=== PATIENT | female | born 1965 | race Caucasian/White ===

== ENCOUNTER → 2019-01-22 16:05 | Outpatient (CLI) | payer OTHER, SELFPAY ==
--- NOTE | 2019-01-22 16:12 | US_ITS ---
HISTORY: PROTEINURIA EXAMINATION: US Kidney(s) complete (eg, kidneys and bladder) TECHNIQUE: Douglas scale and color doppler images were obtained of the kidneys. 113 images. COMPARISON: None FINDINGS: RIGHT KIDNEY: Measures 1.4 x 6 x 4.8 cm. The cortex is 18 mm thick.. There is no hydronephrosis. No shadowing calculus, focal lesion or perinephric collection is demonstrated. LEFT KIDNEY: Measures 1.3 x 4.9 x 5 cm. The cortex is 19 mm thick.. There is no hydronephrosis. No renal calculi are perceived. 2 anechoic structures are present within the right kidney. One measures 7 x 7 x 5 mm. The other measures 9 x 9 x 7 mm. These are consistent with benign simple cysts. URINARY BLADDER: Measures about 200 cc on the prevoid volume, and is empty and about 4 cc on the postvoid volume. Bilateral ureteral jets were demonstrated. US/Kidney and Bladder IMPRESSION: Negative renal ultrasound. at 0456 Reported and signed by: Liban Hill MD Electronically Signed: Liban Hill MD at 4:55 EST Tel , Service support ,
== END ==
PROVIDERS: Family Provider Family Medicine; PCP Family Medicine; Referring Provider Family Medicine; Visit Provider Family Medicine
DX: R80.9 Proteinuria, unspecified (principal)
CPT/HCPCS: 76770

== ENCOUNTER 2019-08-12 09:28 | Emergency (ER) | payer OTHER, SELFPAY ==
[2019-08-12 09:30] VITALS: BP 154/96; PULSE 96; RESP 16; TEMP 36.3; O2SAT 96; BMI 29.0
--- NOTE | 2019-08-12 09:49 | CT_ITS ---
STUDY: CT ABDOMEN AND PELVIS WITH CONTRAST REASON FOR EXAM: Female, 54 years old. TAA,PATIENT STATES SHE HAS RECENTLY BEEN TREATED FOR AN ABSCESS AND A UTI. STATES SYMPTOMS RESOLVED FOR APPROXIMATELY 10 DAYS. NOW COMPLAINS OF BACK PAIN. CONCERNS FOR LYME DISEASE, WAS STARTED ON DOXYCYCLINE ON 08/09. RADIATION DOSAGE (If Supplied By Facility): CTDIvol = ( 19.08 ) mGy, DLP = ( 1460.70 ) mGycm TECHNIQUE: Transaxial images were obtained from the dome of the diaphragm to the symphysis pubis without oral contrast. IV 100mL Isovue-370 was administered. Sagittal and coronal images were reconstructed. Individualized dose optimization techniques were used for this CT. COMPARISON: None. FINDINGS: Mild increased markings at the left lung base suggestive of atelectasis and/or scarring. The visualized portions of the heart are within normal limits. There is decreased attenuation of the liver consistent with steatosis. Normal gallbladder and extrahepatic biliary system. Normal spleen. Normal pancreas. Normal bilateral adrenal glands. Normal right kidney. Normal left kidney. Normal visualized stomach. Normal small intestine. Normal colon. The appendix is visualized and appears normal. There is scattered atherosclerotic calcification of the abdominal aorta, without a demonstrated aneurysm. Normal inferior vena cava. Normal retroperitoneum. Normal urinary bladder. Normal abdominal wall. Normal osseous structures. CT/Abdomen/Pelvis W IV Cont ONLY IMPRESSION: Fatty infiltration of the liver. No acute abnormality is seen. Electronically Signed: Ralph Luciano, at 11:09 EDT , Service support ,
--- NOTE | 2019-08-12 09:49 | EKG12_ITS ---
Test Reason : BACK Blood Pressure : / mmHG Vent. Rate : 092 BPM Atrial Rate : 092 BPM P-R Int : 154 ms QRS Dur : 070 ms QT Int : 342 ms P-R-T Axes : 015 017 023 degrees QTc Int : 422 ms Normal sinus rhythm Normal ECG Confirmed by JUDY BARBER, AUDREY ([id number]), editorial director ROSA DAMIAN ([id number]) on 08/14/2019 10:17:09 AM Referred By: DOMINIC Confirmed By:AUDREY KIM MD
--- NOTE | 2019-08-12 09:50 | ED.DCSUM_ITS ---
- ER Visit Summary Date of Service: 08/12/19 Chief Complaint: Back pain History of Present Illness: The patient is a [address] Emerson leger. She reports that she has mid back pain that began 3 days ago. Came on suddenly. Is a continuous sharp, aching pain. Is 10-10 at worst and 4-10 currently. Is worsened by nothing including movement. Is also relieved by nothing. She is taking Aleve without relief. States that she cannot find a comfortable position. She denies any radiation of the pain to her legs. No numbness, tingling, or weakness in her legs. No problems with her bowels or her bladder. She denies any recent trauma. No fall, MVA, or change in activity. Patient reports that last month she had an abscess to her left hip that she was placed on an antibiotic for for 10 days and it is completely resolved. On July 29 she saw her primary care physician and was diagnosed with a urinary tract infection was placed on Cipro for 5 days. States that that resolved as well. At that time she had back pain, but this is different. She had a negative COVID test then as well. Patient reports that she spoke with a family member who is a nurse practitioner and they were concerned about the possibility of Lyme disease and started her on doxycycline which she began 2 days ago. She reports that they do have a lot of ticks at their house. She taken 10 ticks off of her self over the last 6 to 8 weeks. However, she reports that none of these tics seem to have latched on. Patient denies any chest pain. However, she reports when the back pain is severe it seems to radiate into her chest. She denies any shortness of breath. No fever, chills, or cough. No ankle swelling or calf pain. No personal or family history of DVT. No recent travel. There is also no family history of kidney stones. Physical Examination: Vitals: Stable. Afebrile. General: Well-nourished and well-developed. Head: Normocephalic atraumatic. Neck: Supple, no lymphadenopathy. No JVD. Nontender. Cardiovascular: Regular rate and rhythm. No murmurs. Respiratory: No respiratory distress. Clear to auscultation bilaterally. Abdominal: Soft, nontender, nondistended, normal bowel sounds. No guarding, rebound, or peritoneal signs. Back: Nontender. No CVA tenderness. No pain with range of motion. Extremities: Nontender, no edema. Skin: Normal color, no rash. Neurologic: Alert and oriented ?3. Cranial nerves II through XII are intact. Normal strength and sensation. Psych: Normal affect. Test Results: EKG is sinus at [address] changes. Troponin is negative. D-dimer is 0.44. UA shows 25 to 50 white blood cells, but no bacteria. Chem-7 shows a sodium 133, chloride 96, glucose 124. CBC shows platelets of 561. Clinical Impression(s) from Imaging Studies Abdomen/Pelvis CT 08/12/19 09:49 IMPRESSION: Fatty infiltration of the liver. No acute abnormality is seen. Electronically Signed: Ralph Luciano, at 11:09 EDT , Service support , Chest CTA 08/12/19 10:46 IMPRESSION: Normal CTA chest examination, without a demonstrated pulmonary embolism or arterial dissection. Electronically Signed: Ralph Luciano, at 11:10 EDT , Service support , Emergency Department Course and Treatment: Patient had an IV placed. She is given a liter normal saline. She was given morphine and Zofran IV. She is resting more comfortably. Treatment Plan: Patient's urine was sent for culture. And had a prolonged scratch that there that at this time I do not have an explanation for her pain. She will be discharged with naproxen, Clark, and Zofran. Instructed to follow- up with her primary care physician in 3 to 5 days if not improving. Return to the emergency department for any worsening symptoms. Disposition: To home in improved and stable condition. Impression: 1. Back pain, uncertain cause. This note was generated with [employer] software. It may contain incorrect words, spelling, and punctuation that were not noted in review of the chart prior to signing ED Disposition - Plan for ED Patient: Disposition: Home or Assisted Living Instructions: ED Back Pain Acute or Chronic Prescriptions: Naproxen [Naprosyn] 500 mg PO BID #14 tab Prescription Printed Hydrocodone Bitart/Apap 5-325 [Clark 5MG-325MG] 1 tab PO Q4H PRN PRN 2 Days #10 tab PRN Reason: Pain Prescription Printed Ondansetron [Zofran Odt] 4 mg PO Q8H PRN PRN #10 tab PRN Reason: Nausea Prescription Printed Referrals: Lemuel Carvajal MD [Primary Care Provider] - 3-5 Days
[2019-08-12] MEDS: 0.9% Normal Saline 1,000 ML 1000 ML IV (09:59)
[2019-08-12 10:05] LABS: Bacteria 0 SEEN /hpf (None Seen); Mucous, Urine 0 SEEN /hpf (<or=2+)
[2019-08-12] MEDS: Ondansetron 4 MG/2 ML Vial IV (10:05)
[2019-08-12] MEDS: Morphine 4 MG/ML Syringe IV (10:05)
[2019-08-12 10:08] VITALS: BP 161/99; PULSE 90; RESP 17; O2SAT 94
[2019-08-12 10:10] LABS: Absolute Lymphocyte Count 2.75 X10^3/uL (0.83-4.51); Absolute Neutrophil Count 6.3 X10^3/uL (2.0-7.7); Basophil# 0.08 X10^3/uL; Basophil% 0.8 % (0-1); Eosinophil# 0.16 X10^3/uL; Eosinophils% 1.6 % (0-5); Hematocrit 45.3 % (37-47); Lymphocyte # 2.75 X10^3/ul (4.0); Lymphocyte % 27.6 % (19-41); Mean Corp Hgb Conc 33.1 g/dL (32-36); Mean Corpuscular Hgb 29.6 pg (27.0-32.0); Mean Corpuscular Volume 89.5 fL (81-99); Mean Platelet Vol. 8.3 fl (6.2-12.0); Monocyte# 0.58 X10^3/uL; Monocyte% 5.8 % (0-10); NRBC Flagged by Analyzer 0 % (0-5); Neutrophil # 6.33 X10^3/uL (2.7-7.7); Neutrophil % 63.7 % (47-70); Platelet Count 561 K/mm3 (150-450); RBC Distribution Width CV 13.5 % (11.6-14.6); RBC Distribution Width SD 43.5 fl (35.1-43.9); Red Blood Count 5.06 M/mm3 (4.2-5.4)
[2019-08-12 10:14] LABS: Color, Urine Yellow (Yellow); Glucose, Dipstick Normal (Normal); Ketone-Dipstick Negative (Negative); Leukocyte Esterase-Dipstick 500 /ul (Negative); Nitrite-Dipstick Negative (Negative); Occult Blood-Urine 25 /ul (Negative); Protein-Dipstick 100 mg/dl (Negative); Urine Bilirubin Dipstick Negative (Negative); Urine Clarity Sl. Cloudy (Clear); Urine Urobilinogen Normal (Normal)
[2019-08-12 10:20] LABS: Red Blood Cells-Urine 0-5 SEEN /hpf (0-5); Squamous Epithelial Cells - UA 0-5 SEEN /hpf (5-10); White Blood Cells 25-50 SEEN /hpf (0-5)
[2019-08-12 10:25] LABS: D-Dimer Quantitative (DVT/PE) 0.44 FEU/ug/m (0.27-0.49)
[2019-08-12 10:27] LABS: ALB/GLOB Ratio 0.9 RATIO (0.9-2.4); AST(SGOT) 26 U/L (15-37); Alanine Aminotransfer ALT/SGPT 62 U/L (13-56); Albumin, Serum 4.2 g/dL (3.2-5.0); Alkaline Phosphatase 145 U/L (45-117); Anion Gap 7 (5-15); BUN 16 mg/dL (7-18); Calcium,Total 9.7 mg/dL (8.5-10.1); Chloride 96 mmol/L (98-107); Creatinine, Serum 0.89 mg/dL (0.55-1.02); EST Glomerular Filtration Rate 70 mL/min (>60); Est Glom Filt Rate - Afr Amer 84 mL/min (>60); Estimated Creatinine Clearance 66.07 ml/min; Globulin 4.5 g/dL (2.2-4.2); Glucose 124 mg/dL (74-106); Protein, Total 8.7 g/dL (6.4-8.2); Sodium Level 133 mmol/L (136-145)
--- NOTE | 2019-08-12 10:46 | CT_ITS ---
STUDY: CTA CHEST REASON FOR EXAM: Female, 54 years old. TAA,PATIENT STATES SHE HAS RECENTLY BEEN TREATED FOR AN ABSCESS AND A UTI. STATES SYMPTOMS RESOLVED FOR APPROXIMATELY 10 DAYS. NOW COMPLAINS OF BACK PAIN. CONCERNS FOR LYME DISEASE, WAS STARTED ON DOXYCYCLINE ON 08/09. RADIATION DOSAGE (If Supplied By Facility): CTDIvol = ( 19.08 ) mGy, DLP = ( 1460.70 ) mGycm TECHNIQUE: The examination was performed with the intravenous administration of IV 100mL Isovue-370. Post-processing of the angiographic images was performed, with multiplanar reformation and 3D reconstruction. Individualized dose optimization techniques were used for this CT. COMPARISON: None. FINDINGS: Small benign-appearing bilateral axillary lymph nodes. Normal enhancement of the main pulmonary artery and right and left pulmonary arteries. Normal enhancement of the bilateral peripheral pulmonary arteries. There is no demonstrated pulmonary embolism. Normal thoracic aorta and visualized great vessels. There is no demonstrated aortic dissection. Normal heart and pericardium. Normal mediastinum. Normal hilar regions. Normal visualized trachea and bronchi. The lungs are well expanded. Minimal increased linear markings at the left lung base suggestive of underlying atelectasis and/or scarring. Normal pleura. Normal chest wall structures. Normal osseous structures. Fatty infiltration of the liver. CT/CTA Chest W/WO Contrast IMPRESSION: Normal CTA chest examination, without a demonstrated pulmonary embolism or arterial dissection. Electronically Signed: Ralph Luciano, at 11:10 EDT , Service support ,
[2019-08-12 12:35] VITALS: BP 144/88; PULSE 80; RESP 16; O2SAT 96; O2SAT 98
== END 2019-08-12 12:36 | disposition home or self-care (01) ==
LOC: ED 10:27
PROVIDERS: Emergency Provider Emergency Medicine; PCP Family Medicine
DX: M54.6 Pain in thoracic spine (principal); K76.0 Fatty (change of) liver, not elsewhere classified; I10 Essential (primary) hypertension; Z79.899 Other long term (current) drug therapy
CPT/HCPCS: 71275; 74177; 80053; 81001; 84484; 85025; 85379; 87077; 87086; 87088; 87186; 93005; 96361; 96374; 96375; 99284; J7030; Q9967; A4216; J2405

== ENCOUNTER 2024-03-27 14:20 | Outpatient (RCR) | payer OTHER, SELFPAY | END 2024-04-05 23:59 | LOC: NS 14:20 | PROVIDERS: PCP Family Medicine; Referring Provider Family Medicine; Visit Provider Family Medicine | DX: E11.9 Type 2 diabetes mellitus without complications (principal) | CPT/HCPCS: 97803 ==

== ENCOUNTER 2024-04-24 14:27 | Outpatient (RCR) | payer OTHER, SELFPAY | END 2024-05-06 23:59 | LOC: NS 14:27 | PROVIDERS: PCP Family Medicine; Referring Provider Family Medicine; Visit Provider Family Medicine | DX: Z71.3 Dietary counseling and surveillance (principal); E11.9 Type 2 diabetes mellitus without complications | CPT/HCPCS: 97803 ==

== ENCOUNTER 2024-06-03 14:09 | Outpatient (RCR) | payer OTHER, SELFPAY | END 2024-06-05 23:59 | LOC: NS 14:09 | PROVIDERS: PCP Family Medicine; Referring Provider Family Medicine; Visit Provider Family Medicine | DX: Z71.3 Dietary counseling and surveillance (principal); E11.9 Type 2 diabetes mellitus without complications | CPT/HCPCS: 97803 ==

== ENCOUNTER 2024-07-10 08:27 | Outpatient (RCR) | payer OTHER, SELFPAY | END 2024-08-05 23:59 | LOC: NS 08:27 | PROVIDERS: PCP Family Medicine; Referring Provider Family Medicine; Visit Provider Family Medicine | DX: Z71.3 Dietary counseling and surveillance (principal); E11.9 Type 2 diabetes mellitus without complications | CPT/HCPCS: 97803 ==

== ENCOUNTER → 2024-07-29 | Outpatient (CLI) | payer OTHER, SELFPAY ==
[2024-07-29 11:00] LABS: Microalbumin,Random Urine 13.8 mg/L (NO RANGE EST.)
--- OUTSIDE RECORDS SUMMARY | 2024-07-29 11:02 | XMS RPT_ITS | CCD ---
Author Organization [facility] Care Team Providers Care Carbide Die Maker Name Role Phone Andrey Vega Unavailable Unavailable Andrey Vega Unavailable Unavailable Gomez Pettit Unavailable Unavailable Stephan Tran Unavailable Unavailable Gomez Pettit Unavailable Unavailable Gomez Pettit Unavailable Unavailable Stephan Tran Unavailable Unavailable Chris BARBER, Dr. Del Castillo Primary Care Provider Dr. Magdalene Perez MD Attending Provider [phone] Magdalene Perez MD Referring Provider [phone] Magdalene Perez Primary Care Unavailable Magdalene Perez Referring Unavailable Magdalene Perez Attending Unavailable Magdalene Perez Primary Care Unavailable Magdalene Perez Referring Unavailable Magdalene Perez Attending Unavailable Magdalene Perez Primary Care Unavailable Magdalene Perez Referring Unavailable Magdalene Perez Attending Unavailable Magdalene Perez Referring Unavailable Magdalene Perez Attending Unavailable Magdalene Perez Primary Care Unavailable Magdalene Perez Referring Unavailable Magdalene Perez Attending Unavailable Magdalene Perez Primary Care Unavailable Allergies Allergy Classification Reported Allergen(s) Allergy Type Date of Onset Reaction(s) Facility (1 source) Penicillin; Translations: [penicillin] [facility] Penicillins Allergy to substance 1 PT UNSURE OF REACTION [facility] (1 source) Penicillins Drug allergy (disorder) 1 [facility] Repository Medications Current Medications Medication Drug Class(es) Dates Sig (Normalized) Sig (Original) azithromycin 250 mg oral tablet (1 source) Macrolide Antimicrobial Start: 04-01-19 Azithromycin 250 mg tablet Active 250 mg PO daily April 01, 2020 1:00am 2 tablets today, then 1 tablet daily on days 2 through 5 hydroCHLOROthiazide 25 mg oral tablet (2 sources) Thiazide Diuretic Start: 04-01-19 Hydrochlorothiazide 25 mg tablet Active 25 mg PO April 01, 2020 1:00am Start: 08-12-2019 End: 04-01-2020 Hydrochlorothiazide 1 TAB Di scontinued 1 {tbl} PO DAILY August 12, 2019 12:00am April 01, 2020 2:50pm Multivitamin tablet (1 source) Start: 04-01-2020 Multivitamin t ablet Active 1 {tbl} PO DAILY April 01, 2020 1:00am rosuvastatin calcium 10 mg oral tablet (1 source) HMG-CoA Reductase Inhibitor Start: 08-12-2019 take 1 tablet by mouth once daily Rosuvastatin 10 MG tablet Active 10 mg PO DAILY August 12, 2019 12:00am Completed/Discontinued Medications Medication Drug Class(es) Dates Sig (Normalized) Sig (Original) acetaminophen 325 mg / HYDROcodone bitartrate 5 mg oral tablet (1 source) Opioid Agonist Start: 08-12-2019 End: 08-14-2019 Hydrocodone-Acetam inophen 1 TABLET tablet Discontinued 1 {tbl} PO EVERY 4 HOURS NEEDED as needed for Pain 10 2 August 12, 2019 August 13, 2019 12:00am August 14, 2019 12:02am Doxycycline (1 source) Tetracycline-class Drug Start: 08-12-2019 End: 04-01-2020 Doxycycline 1 TAB Discontinued 1 {tbl} PO DAILY August 12, 2019 12:00am April 01, 2020 2:50pm naproxen 500 mg oral tablet (1 source) Nonsteroidal Anti-inflammatory Drug Start: 08-12-2019 End: 04-01-2020 take 1 tablet by mouth twice daily Naproxen 500 MG tablet Discontinued 500 mg PO TWICE A DAY 14 August 12, 2019 12:00am April 01, 2020 2:50pm ondansetron 4 mg disintegrating oral tablet (1 source) Serotonin-3 Receptor Antagonist Start: 08-12-2019 End: 04-01-2020 take 1 tablet by mouth every eight hours as needed for nausea Ondansetron 4 MG tablet Discontinued 4 mg PO EVERY 8 HOURS NEEDED as needed for Nausea August 12, 2019 12:00am April 01, 2020 2:50pm Problems Problem Classification Problem Date Documented Da te Episodic/Chronic Diabetes mellitus without complication (2 sources) Type 2 diabetes mellitus without complications; Translations: [Type 2 diabetes mellitus without complications] Onset: 06-06-2024 Chronic Fracture of upper limb (1 source) Open fracture of middle phalanx of index finger of right hand; Translations: [Displaced fracture of middle phalanx of right index finger, initial encounter for open fracture] 04-10-2020 Episodic Open wounds of extremities (1 source) Laceration of right index finger; Translations: [Laceration without foreign body of right index finger without damage to nail, initial encounter] 04-10-2020 Episodic Results Test Name Value Interpretation Reference Range Facil ity HIP, UNILATERAL W/PELVIS WHE N PERFORMED 2-3 VIEWSon 10-04-2019 HIP, UNILATERAL W/PELVIS WHEN PERFORMED 2-3 VIEWS Patient Name: YOVANI SANON STUDY: HIP, UNILATERAL W/PELVIS WHEN PERFORMED 2-3 VIEWS; 10/04/2019 1:43 pm INDICATION: M25.551 right hip pain. COMPARISON: None. ACCESSION NUMBER(S): [id number] ORDERING CLINICIAN: GOMEZ PETTIT FINDINGS: Pelvis and right hip, three views There is mild osteophytosis in the right hip joint. There is no joint space narrowing. There is no fracture or osteonecrosis IMPRESSION: Mild right hip degenerative changes. Electronically signed by: FRANCIE BRIGGS MD [facility] CT CARDIAC SCORINGon 01-07 CT CARDIAC SCORING Patient Name: YOVANI SANON STUDY: CT CARDIAC SCORING; 01/28/2019 9:00 am INDICATION: SCREENING FOR HEART DISEASE. COMPARISON: None. ACCESSION NUMBER(S): [id number] ORDERING CLINICIAN: GOMEZ PETTIT TECHNIQUE: Using prospective ECG gating, CT scan of the coronary arteries was performed without intravenous contrast. Coronary calcium scoring was performed according to the method of Agatston. FINDINGS: The score and distribution of calcium in the coronary arteries is as follows: LM 0, LAD 97,40 mm2 LCx 1,1 mm2 RCA 1,1 mm2 Total 99 The visualized mid/lower ascending thoracic aorta measures 3.5 cm in diameter. The visualized descending thoracic aorta is within normal limits for course and caliber. The heart is within normal limits for size. No pericardial effusion is present. No gross mediastinal lymphadenopathy is identified. There is no focal infiltrate, pleural effusion or pneumothorax identified. No discrete pulmonary nodules or masses are seen within the visualized lungs. IMPRESSION: 1. Coronary artery calcium score of 99, which places the patient in the low risk category, as below. Coronary artery calcium scoring may be helpful in predicting the risk for future coronary heart disease events. According to the [employer] [employer] Clinical Expert Consensus Task Force, such testing provides important prognostic information in patients with more than one coronary heart disease risk factor. The coronary artery calcium score correlates with the annual risk of a non-fatal myocardial infarction or coronary heart disease . Coronary artery score Annual Risk 0-99 0.4% 100-399 1.3% >400 2.4% These three breakpoints correspond to lower, intermediate and high risk states for future coronary events. Such information should be used, along with appropriate clinical judgment, to make decisions regarding the intensity of risk factor management strategies to treat blood lipids and to modify other non-lipid coronary risk factors. Reference: [place] P et al. Circulation. 2007; 115:402-426 Electronically signed by: MECHE HALL MD [facility] Vital Signs Date Time Vital Sign Value Performing Clinician Jossie escobedo 04-24-2024 14:30-0400 Body height 167.[address] Magdalene Perez MD Work Phone: [facility] 04-24-2024 14:30-0400 Body weight 84.[address] Magdalene Perez MD Work Phone: [facility] 03-27-2024 14:30-0500 Body weight 84.[address] Magdalene Perez MD Work Phone: [facility] 03-06-2024 14:54-0500 Body weight 85.[address] Magdalene Perez MD Work Phone: [facility] Encounters Encounter Date Encounter Type Care Provider Facility Start: 2024 ambulatory Magdalene Perez Facility: [facility] Start: 06-03-2024 End: 06-05-2024 ambulatory [facility] Facility:[facility] Start: 04-24-2024 End: 05-06-[address] Magdalene Perez MD -Nutritional Servi kael Work Phone: Start: 04-24-2024 End: 05-06-[address] Magdalene Perez MD Work Phone: [facility] Work Phone: Start: 03-27-2024 End: 04-05-[address] Magdalene Perez MD -Nutritional Servi kael Work Phone: Start: 03-27-2024 End: 04-05-2024 ambulatory [facility] Facility:[facility] Start: 03-06-2024 End: 03-08-[address] Magdalene Perez MD -Nutritional Servi kael Work Phone: Start: 03-06-2024 End: 03-08-2024 ambulatory [facility] Facility:[facility] Start: 02-13-2018 End: 02-13-2018 Patient encounter procedure Stephan Tran Facility:[facility] Start: 02-13-2018 Patient encounter procedure Facility:[id number] Start: 04-04-2017 End: 04-04-2017 Patient encounter procedure Andrey Vega Facility:[facility] Payers Date Payer Category Payer Self-pay [id number] 2024 Unknown [id number] 2017 Unknown 1965 Unknown [id number] 1965 Unknown [id number] 1965 Unknown [id number] Unknown [facility] 2 [id number] Unknown [id number] Unknown [id number] Unknown [id number] Unknown [id number] Unknown [id number] Social History Date Type Detail Facility Start: 04-24-2020 Tobacco smoking stat [facility] Never smoked tobacco (finding) [facility] Start: 05-07-2024 Sex Female (finding) [facility] Start: 1965 Sex Assigned At Female [facility] Evaluation note Note Date & Type Note Facility Evaluation note No assessment information availa ble [facility] Work Phone: Reason for referral (narrative) Note Date & Type Note Facility Reason for referral (narrative) No reason for referral information available [facility] Work Phone: Summary Purpose Family History No Family History Records Found Relationship Condition Age at Onset Recorded Date/T idalia father Cardiac disease Unknown Advance Directives No Advanced Directives Records FoundNo Advanced Directives Records FoundNo Advanced Directives Records FoundNo Advanced Directives Records Found Chief Complaint and Reason for Visit Chief Complaint Admit Date TYPE 2 DM March 06, 2024 2 :43pm TYPE 2 DM March 27, 2024 2:20pm TYPE 2 DM April 24, 2024 2:2 7pm Additional Source Comments INFORMATION SOURCE (unrecogn ized section and content) DATE CREATED AUTHOR 02/15/2018 [facility] DATE CREATED AUTHOR AUTHOR'S ORGANIZ ATION 02/19/2018 [facility] DATE CREATED AUTHOR AUTHOR'S ORGANIZ ATION 10/06/2019 [facility] DATE CREATED AUTHOR AUTHOR'S ORGANIZ ATION 07/11/[address] [facility] Care Teams (unrecognized sec tion and content) Team Status: Active Member Role Status Dates Dr. Magdalene Perez MD Primary Care Provider Active Team Status: Inactive Member Role Status Dates Dr. Magdalene Perez MD Primary Care Provider Active Start: March 06, 2024 End: March 08, 2024 Dr. Magdalene Perez MD Attending Provider Active Start: March 06, 2024 End: March 08, 2024 Dr. Magdalene Perez MD Referring Provider Active Start: March 06, 2024 End: March 08, 2024 Team Status: Inactive Member Role Status Dates Dr. Magdalene Perez MD Primary Care Provider Active Start: March 27, 2024 End: April 05, 2024 Dr. Magdalene Perez MD Attending Provider Active Start: March 27, 2024 End: April 05, 2024 Dr. Magdalene Perez MD Referring Provider Active Start: March 27, 2024 End: April 05, 2024 Team Status: Inactive Member Role Status Dates Dr. Magdalene Perez MD Primary Care Provider Active Start: April 24, 2024 End: May 06, 2024 Dr. Magdalene Perez MD Attending Provider Active Start: April 24, 2024 End: May 06, 2024 Dr. Magdalene Perez MD Referring Provider Active Start: April 24, 2024 End: May 06, 2024 Goals (unrecognized section and content) Goals may be documented in a n alternate section FOR RECORDS PERTAINING TO PATIENTS WHO ARE OR HAVE BEEN ENROLLED IN A CHEMICAL DEPENDENCY/SUBSTANCEABUSE PROGRAM, SOME INFORMATION MAY BE OMITTED. This clinical summary was aggregated from multiple sources. Caution should be exercised in using it in the provision of clinical care. This summary normalizes information from multiple sources, and as a consequence, information in this document may materially change the coding, format and clinical context of patient data. In addition, data may be omitted in some cases. CLINICAL DECISIONS SHOULD BE BASED ON THE PRIMARY CLINICAL RECORDS. [employer] provides no warranty or guarantee of the accuracy or completeness of information in this document.
[2024-07-29 11:06] LABS: ALB/GLOB Ratio 1.4 RATIO (0.9-2.4); AST(SGOT) 29 U/L (<=31); Alanine Aminotransfer ALT/SGPT 48 U/L (<=34); Albumin, Serum 4.5 g/dL (3.4-4.8); Alkaline Phosphatase 99 U/L (35-104); Anion Gap 14 (5-15); BUN 17 mg/dL (4-19); Carbon Dioxide 24.6 mmol/L (21.0-32.0); Chloride 102 mmol/L (98-108); Creatinine, Serum 0.81 mg/dL (0.70-1.20); EST Glomerular Filtration Rate 83 (>60); Globulin 3.2 g/dL (2.2-4.2); Glucose 134 mg/dL (70-99); Potassium 4.2 mmol/L (3.3-5.1); Protein, Total 7.7 g/dL (5.9-8.4); Sodium Level 140 mmol/L (133-145); Total Bilirubin 0.54 mg/dL (0.00-1.30)
[2024-07-29 11:17] LABS: Hemoglobin A1c 7.3 % (<=5.6)
== END | disposition home or self-care (01) ==
PROVIDERS: PCP Family Medicine; Referring Provider Family Medicine; Visit Provider Family Medicine
DX: E11.9 Type 2 diabetes mellitus without complications (principal)
CPT/HCPCS: 36415; 80053; 82043; 82570; 83036